=== PATIENT | female | born 1945 | race Caucasian/White ===

== ENCOUNTER → 2017-03-27 | Outpatient (CLI) | payer MEDICARE, OTHER ==
[~2017-03-27] MED LIST: ASPIRIN 81M81 MG/TA2 PO; DUO-KAPS1 CAP PO; LEVOTHYROXINE0.05 MG PO; LOVAZA1 GM PO; OMEPRAZOLE20 MG PO; POTASSIUM '99'620 MG PO; PREMARIN VAG42.5 GM VG; TRIAMTERENE/HCT1 TAB PO; VAGIFEM10 MCG VG; VITAMIN C500 MG PO; [UNRECOGNIZED DRUG - OTHER] PO
== END ==
LOC: COL.RAD 08:34
DX: S86.312A Strain of muscle(s) and tendon(s) of peroneal muscle group at lower leg level, left leg, initial encounter (principal); M76.72 Peroneal tendinitis, left leg; M65.872 Other synovitis and tenosynovitis, left ankle and foot; S93.492A Sprain of other ligament of left ankle, initial encounter; S93.412A Sprain of calcaneofibular ligament of left ankle, initial encounter; M76.62 Achilles tendinitis, left leg; M72.2 Plantar fascial fibromatosis; M19.072 Primary osteoarthritis, left ankle and foot